=== PATIENT | female | born 1975 | race African-American/Black ===

== ENCOUNTER 2018-12-05 00:23 | Emergency (ER) | payer OTHER ==
[~2018-12-05] VITALS: Ht 165.1 cm; Wt 132.0 kg
[2018-12-05] MEDS ORDERED: DEPAKOTE500 MG PO (00:31)
[2018-12-05] MEDS ORDERED: BENZTROPINE MES1 MG PO (00:31)
[2018-12-05] MEDS ORDERED: CLONAZEPAM 1 MG1 M1 PO (00:31)
[2018-12-05] MEDS ORDERED: ROBAXIN 750 MG750 M1 PO (00:32)
[2018-12-05] MEDS ORDERED: INVEGA6 MG PO (00:32)
[2018-12-05] MEDS ORDERED: MOBIC15 MG PO (00:33)
[2018-12-05] MEDS ORDERED: NAPROSYN500 MG PO (00:33)
[2018-12-05 02:26] VITALS: BP 143/81
== END 2018-12-05 02:27 | disposition home or self-care (01) ==
LOC: ER 00:23
DX: J06.9 Acute upper respiratory infection, unspecified (principal); F20.9 Schizophrenia, unspecified; F41.9 Anxiety disorder, unspecified

== ENCOUNTER 2019-03-27 11:52 | Observation (INO) | payer OTHER ==
[~2019-03-27] VITALS: Ht 165.1 cm; Wt 128.4 kg
[~2019-03-27 11:52] MED LIST: BENZTROPINE MES1 MG PO; CLONAZEPAM 1 MG1 M1 PO; DEPAKOTE500 MG PO; INVEGA6 MG PO; MOBIC15 MG PO; NAPROSYN500 MG PO; ROBAXIN 750 MG750 M1 PO
[2019-03-27 11:54] VITALS: BP 147/84
[2019-03-27 13:36] LABS: ABSOLUTE NEUTROPHILS 4.9 thou/uL (1.4-8.2); BASOPHILS 0.4 % (0.0-2.0); EOSINOPHILS 1.9 % (0.0-3.0); HEMATOCRIT 33.9 % (37.0-47.0); HEMOGLOBIN 11.7 gm/dL (12.0-15.0); MCHC 34.5 g/dL (28.0-37.0); MCV 95.8 fL (80.0-100.0); MONOCYTES 11.7 % (1.0-8.0); PLATELET COUNT 290 thou/uL (150-400); RBC 3.54 mil/uL (4.20-5.00); RDW 13.5 % (10.5-14.5); WBC 8.9 thou/uL (4.0-11.0)
[2019-03-27 13:48] LABS: PROTIME 10.2 Seconds (9.3-11.4)
[2019-03-27 13:55] LABS: ALBUMIN 3.5 g/dL (3.4-5.0); ANION GAP 6 mmol/L (7-16); BUN 9 mg/dL (7-18); CALCIUM 8.9 mg/dL (8.5-10.1); CHLORIDE 98 mmol/L (98-107); CO2 28 mmol/L (21-32); CREATININE 0.9 mg/dL (0.6-1.0); GLUCOSE 90 mg/dL (74-106); POTASSIUM 3.8 mmol/L (3.5-5.1); SGOT 15 U/L (15-37); SGPT 16 U/L (30-65); SODIUM 132 mmol/L (136-145); TOTAL BILIRUBIN 0.4 mg/dL (<0.1-1.0); TOTAL PROTEIN 7.3 g/dL (6.4-8.2); TROPONIN-I <0.06 ng/mL (<0.06)
[2019-03-27 16:53] LABS: CHOLESTEROL 254 mg/dL (<200); HDL CHOLESTEROL 51 mg/dL (>40); LDL CHOLESTEROL 186 mg/dL (<100); TRIGLYCERIDE 89 mg/dL (<150); VLDL 18 mg/dL (<40)
[2019-03-27 17:29] VITALS: BP 139/79
[2019-03-27 18:00] VITALS: BP 129/83
[2019-03-27] MEDS ORDERED: NEURONTIN 400400 M1 PO (18:50)
[2019-03-27] MEDS ORDERED: DICLOFENAC SODI75 MG PO (18:53)
[2019-03-27 20:12] VITALS: BP 113/67
[2019-03-28 00:45] VITALS: BP 128/66
[2019-03-28 04:45] VITALS: BP 127/72
[2019-03-28 07:50] VITALS: BP 107/66
--- NOTE | 2019-03-28 09:15 | EKG ---
[address] [address] ELECTROCARDIOGRAM REPORT Name: [facility]ACARL [facility] Room #: 205-P [facility]#: [id number] ������������������ Admission: 03/27/19 ������������������ Attend Phys: Jocelyn Carrillo MD Discharge: ������������������ Date of : 71 Report #: [id number] ����������������������������������������������������������������� [id number] THIS REPORT FOR: //name// [facility] ED Test Date: 2019-03-27 Test Time: 12:54:40 Pat Name: CARL MELENDEZ Department: Room: 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1975 Requested By: Brent Ramirez Order Number: [id number] MD: Louie Luis Measurements Intervals [place] Rate: 73 P: 44 [place]: 159 QRS: 20 QRSD: 100 T: 24 QT: 381 QTc: 420 Interpretive Statements Sinus rhythm Normal tracing No previous ECG available for comparison Electronically Signed On 03-28-2019 9:15:04 CDT by Louie Luis [email or web address] ��������������������������������������������� <ELECTRONICALLY SIGNED> ���������������������������������������� By: Louie Luis MD, [facility] ��������������������������������������������� 03/28/19 0915 1254 1254 Louie Luis MD, FACC /EPI
[2019-03-28 11:07] VITALS: BP 107/66
[2019-03-28 12:11] LABS: GLYCOHEMOGLOBIN (HGB A1C) 5.3 % (4.8-5.6)
== END 2019-03-28 12:45 | disposition home or self-care (01) ==
LOC: ER 11:52 → 2N 16:08 → EROBS 16:08 → 2N 17:36 → ENTRNSPT 03-28 12:21 → EDTRNSPTSTS 03-28 12:38 → 2N 03-28 12:45
PROVIDERS: Emergency Medicine; ADMIT Internal Medicine
DX: R20.0 Anesthesia of skin (principal); F41.9 Anxiety disorder, unspecified; F20.9 Schizophrenia, unspecified; E66.9 Obesity, unspecified; F39 Unspecified mood [affective] disorder; F41.0 Panic disorder [episodic paroxysmal anxiety]; M19.90 Unspecified osteoarthritis, unspecified site; Z79.899 Other long term (current) drug therapy
CPT/HCPCS: 10081